=== PATIENT | female | born 1960 | race Caucasian/White ===

== ENCOUNTER → 2025-08-21 | Emergency (ER) | payer MEDICARE ==
[2025-08-21 07:40] LABS: #Basophils 0.04 10x3/uL (0.0-0.2); #Eosinophils 0.10 10x3/uL (0.0-0.5); #Monocytes 0.49 10x3/uL (0.0-1.1); #Neutrophils 6.48 10x3/uL (1.5-8.4); %Basophils 0.5 % (0.0-2.0); %Eosinophils 1.2 % (0.0-6.0); %Lymphocytes 13.1 % (18.0-47.0); %Monocytes 5.9 % (0.0-10.0); %Neutrophils 78.7 % (40.0-75.0); Hematocrit 42.8 % (34.9-44.5); Hemoglobin 15.0 g/dL (12.0-15.5); Mean Corpuscular Hemoglobin 30.2 pg (27.0-33.0); Mean Corpuscular Volume 86.3 fL (81.6-98.3); Platelet Count 319 10x3/uL (150-450); Red Blood Cell (RBC) Count 4.96 10x6/uL (3.90-5.03); White Blood Cell (WBC) Count 8.24 10x3/uL (3.5-10.5)
[2025-08-21 07:59] LABS: ALT (SGPT) 10 U/L (Less than 34); AST (SGOT) 20 U/L (11-34); Albumin 3.6 g/dL (3.1-4.5); Alkaline Phosphatase 99 U/L (40-110); Anion Gap 16 mmol/L (10-20); BUN (Urea Nitrogen) 18 mg/dL (9.8-20.1); Bilirubin, Total 0.4 mg/dL (0.3-1.2); Calc. Creatinine Clearance 0 mL/min (70-130); Calcium 9.2 mg/dL (7.8-10.44); Carbon Dioxide 28 mmol/L (23-31); Chloride 92 mmol/L (98-107); Globulin 3.6 g/dL (2.4-3.5); Glucose 103 mg/dL (80-115); Potassium 3.4 mmol/L (3.5-5.1); Sodium 133 mmol/L (136-145)
== END ==
LOC: CSHERS 07:06
DX: S72.031A Displaced midcervical fracture of right femur, initial encounter for closed fracture (principal); I10 Essential (primary) hypertension; F17.210 Nicotine dependence, cigarettes, uncomplicated; W01.0XXA Fall on same level from slipping, tripping and stumbling without subsequent striking against object, initial encounter; Y93.01 Activity, walking, marching and hiking
CPT/HCPCS: 36415; 71045; 72170; 80053; 85025; 96374; 96375; J2270; J3010